=== PATIENT | female | born 1995 | race Caucasian/White ===

== ENCOUNTER 2022-10-08 21:35 | Emergency (ER) | payer OTHER ==
[2022-10-08 21:41] VITALS: BP 98/63; PULSE 120; RESP 18; TEMP 98.9; BMI 29.1
[2022-10-08] MEDS ORDERED: LACTATED RINGERS SOLUTION 1000 ML INFUS.BAG IV ONE (22:01)
[2022-10-08] MEDS ORDERED: ONDANSETRON 4 MG/2 ML VIAL IVPUSH ONE (22:04)
[2022-10-08] MEDS ORDERED: ONDANSETRON 4 MG/2 ML VIAL ONE (23:04)
[2022-10-08 23:33] LABS: HEMOGLOBIN 12.7 GM/dL (10.7-15.3); MCH 29.8 pg (25.7-33.7); MCHC 34.2 g/dl (32.0-36.0); MEAN CELL VOLUME 87.1 fl (80-96); MEAN PLT VOLUME 8.7 fl (7.5-11.1); PLATELET COUNT 317 10^3/uL (134-434); RBC 4.25 M/mm3 (3.60-5.2); WHITE BLOOD COUNT 20.9 K/mm3 (4.0-10.0)
[2022-10-08 23:41] LABS: URINE APPEARANCE CLOUDY; URINE BILIRUBIN NEGATIVE (NEGATIVE); URINE COLOR YELLOW; URINE GLUCOSE (UA) NEGATIVE (NEGATIVE); URINE KETONE 3+ (NEGATIVE); URINE LEUK ESTERASE NEGATIVE (NEGATIVE); URINE NITRITE NEGATIVE (NEGATIVE); URINE PROTEIN TRACE (NEGATIVE)
[2022-10-08 23:50] LABS: POTASSIUM 3.9 mmol/L (3.5-5.1)
[2022-10-08 23:50] LABS: THROAT:GRP A STREP DETECTED (NOTDETECTED)
[2022-10-08 23:51] LABS: ALBUMIN 3.4 g/dl (3.4-5.0); CALCIUM 9.2 mg/dL (8.5-10.1)
[2022-10-08 23:53] LABS: BLOOD UREA NITROGEN 6.4 mg/dL (7-18)
[2022-10-08 23:56] LABS: CREATININE 0.5 mg/dL (0.55-1.3)
[2022-10-08 23:57] LABS: BILIRUBIN,TOTAL 0.4 mg/dL (0.2-1); TOT PROT 7.2 g/dl (6.4-8.2)
[2022-10-09 00:05] LABS: ANISOCYTOSIS 1+; MACROCYTOSIS 0; ROULEAU 2+
== END 2022-10-09 01:41 | disposition home or self-care (01) ==
LOC: JER 21:35
PROC: 3E033GC Introduction of Other Therapeutic Substance into Peripheral Vein, Percutaneous Approach (ICD-10-PCS; principal; 2022-10-08)
DX: O21.9 Vomiting of pregnancy, unspecified (principal); O99.820 Streptococcus B carrier state complicating pregnancy; Z3A.12 12 weeks gestation of pregnancy; Z20.822 Contact with and (suspected) exposure to COVID-19
CPT/HCPCS: 0241U-QW; 36415; 76817-TC; 80053; 81003; 84703; 85025; 87086; 87651; 99284-25

== ENCOUNTER 2023-03-05 04:40 | Inpatient (IN) | payer OTHER ==
[2023-03-05] MEDS ORDERED: LACTATED RINGERS SOLUTION 500 ML IV ONE ×2 (05:15→06:15)
[2023-03-05] MEDS ORDERED: NIFEdipine 10 MG CAPSULE (FP) PO ONE (06:15)
[2023-03-05] MEDS ORDERED: NIFEdipine 10 MG CAPSULE (FP) ONE (06:19)
[2023-03-05] MEDS ORDERED: BETAMET ACET/BETAMET NA PH 30 MG/5 ML VIAL IM ONE (06:25)
[2023-03-05] MEDS ORDERED: BETAMET ACET/BETAMET NA PH 30 MG/5 ML VIAL ONE (06:33)
[2023-03-05] MEDS ORDERED: ONDANSETRON 4 MG/2 ML VIAL IVPUSH ONE (08:00)
[2023-03-05] MEDS ORDERED: ONDANSETRON 4 MG/2 ML VIAL ONE ×2 (08:03→15:07)
[2023-03-05] MEDS: MAGNESIUM IVPB SCH (09:45)
[2023-03-05] MEDS ORDERED: MAGNESIUM 4GM/H20 - 4 GM/100 ML IVPB IVPB ONE ×2 (09:45→10:09)
[2023-03-05] MEDS ORDERED: MAGNESIUM SULFATE 20GM/500ML - 20 GM/500 ML INFUS.BAG ONE (10:09)
[2023-03-05] MEDS: MAGNESIUM SULFATE 20GM/500ML - 20 GM/500 ML INFUS.BAG IVPB SCH (10:30)
[2023-03-05] MEDS ORDERED: FAMOTIDINE 20 MG/50 ML IVPB 20 MG/50 ML MG IVPB ONE ×2 (11:15→11:32)
[2023-03-05 11:56] LABS: HEMATOCRIT 33.7 % (32.4-45.2); HEMOGLOBIN 11.5 GM/dL (10.7-15.3); MCH 30.4 pg (25.7-33.7); MCHC 34.1 g/dl (32.0-36.0); MEAN CELL VOLUME 89.2 fl (80-96); PLATELET COUNT 246 10^3/uL (134-434); RBC 3.78 M/mm3 (3.60-5.2); WHITE BLOOD COUNT 15.6 K/mm3 (4.0-10.0)
[2023-03-05 11:59] LABS: INR 0.87 (0.83-1.09); PROTHROMBIN TIME (PATIENT) 10.1 SEC (9.7-13.0)
[2023-03-05 12:02] LABS: ACTIVATED PTT 26.7 SECONDS (25.2-36.5)
[2023-03-05 12:04] LABS: ALBUMIN 2.6 g/dl (3.4-5.0)
[2023-03-05 12:07] LABS: BILIRUBIN,DIRECT 0.1 mg/dL (0.0-0.2)
[2023-03-05 12:09] LABS: BILIRUBIN,TOTAL 0.3 mg/dL (0.2-1); TOT PROT 6.4 g/dl (6.4-8.2)
[2023-03-05] MEDS ORDERED: CITRIC ACID/SODIUM CITRATE 30 ML UNIT-DOSE CUP PO ONE (12:30)
[2023-03-05 12:54] LABS: ANISOCYTOSIS 1+; MACROCYTOSIS 0
[2023-03-05 13:15] LABS: POTASSIUM 4.7 mmol/L (3.5-5.1)
[2023-03-05 13:17] LABS: CALCIUM 8.8 mg/dL (8.5-10.1)
[2023-03-05 13:18] LABS: BLOOD UREA NITROGEN 10.3 mg/dL (7-18)
[2023-03-05 13:28] LABS: CREATININE 0.6 mg/dL (0.55-1.3)
[2023-03-05] MEDS ORDERED: PANTOPRAZOLE SODIUM 40 MG VIAL IVPUSH ONE (14:15)
[2023-03-05] MEDS ORDERED: SODIUM CHLORIDE 0.9% P/F 10 ML VIAL IJ ONE (14:15)
[2023-03-05] MEDS ORDERED: PHENYLEPHRINE HCL 10 MG/1 ML SINGLE DOSE VIAL ONE (14:15)
[2023-03-05] MEDS ORDERED: ePHEDrine SULFATE 50 MG/1 ML AMPULE ONE (14:16)
[2023-03-05] MEDS ORDERED: ACETAMINOPHEN 1000 MG/100 ML BAG IVPB ONE (14:16)
[2023-03-05] MEDS ORDERED: SUCCINYLCHOLINE CHLORIDE 200 MG/10 ML SYRINGE ONE (14:16)
[2023-03-05] MEDS ORDERED: ACETAMINOPHEN INJECTION 100 ML IVPB ONE (14:34)
[2023-03-05] MEDS ORDERED: morphine SULFATE/PF 1 MG/2 ML (2cc Syringe - QUVA) ONE (15:07)
[2023-03-05] MEDS ORDERED: FENTANYL CITRATE/PF 50 MCG/ML VIAL ONE (15:08)
[2023-03-05 15:09] LABS: URINE APPEARANCE Clear; URINE BILIRUBIN Negative (NEGATIVE); URINE COLOR Yellow; URINE GLUCOSE (UA) Negative (NEGATIVE); URINE KETONE 2+ (NEGATIVE); URINE LEUK ESTERASE Negative (NEGATIVE); URINE NITRITE Negative (NEGATIVE); URINE PROTEIN 2+ (NEGATIVE); URINE UROBILINOGEN 0.2 mg/dL (0.2-1.0)
[2023-03-05] MEDS ORDERED: OXYTOCIN 30 UNITS in 0.9% NS 30 UNIT/500 ML INFUS.BAG IVPB ONE (15:14)
[2023-03-05] MEDS ORDERED: IBUPROFEN 600 MG TABLET (FP) PO PRN (15:38)
[2023-03-05] MEDS ORDERED: ACETAMINOPHEN 1000 MG/100 ML BAG IVPB PRN (15:38)
[2023-03-05] MEDS ORDERED: SENNOSIDES/DOCUSATE COMBO (SENNA PLUS) TABLET (UD) PO PRN (15:38)
[2023-03-05] MEDS ORDERED: ACETAMINOPHEN 325 MG TABLET (FP) PO PRN (15:38)
[2023-03-05] MEDS ORDERED: ONDANSETRON 4 MG/2 ML VIAL IVPB PRN (15:38)
[2023-03-05] MEDS ORDERED: IBUPROFEN 800 MG/8 ML IJ IVPB PRN (15:38)
[2023-03-05] MEDS ORDERED: oxyCODONE HCL 5 MG TABLET PO PRN (15:38)
[2023-03-05 15:40] LABS: COCAINE, UR NEGATIVE (NEGATIVE); METHADONE, UR NEGATIVE (NEGATIVE); OPIATES, URI NEGATIVE (NEGATIVE); PHENCYCLIDINE,URINE NEGATIVE (NEGATIVE); URINE AMPHETAMINES NEGATIVE (NEGATIVE); URINE BARBITURATES NEGATIVE (NEGATIVE); URINE BENZODIAZEPINES NEGATIVE (NEGATIVE)
[2023-03-05] MEDS ORDERED: MIDAZOLAM HCL 2 MG/2 ML SINGLE DOSE VIAL ONE ×2 (15:54→15:55)
[2023-03-05 16:07] LABS: EPI CELLS 36.9 /uL (0-25.1); HYALINE CASTS 5.69 /uL (0-3.1); URINE BACTERIA 57.1 /uL (0-1359); URINE RBC 22.3 /uL (0-23.9); URINE WBC 19.2 /uL (0-25.8)
[2023-03-05 16:55] LABS: CORD HCO3 15.3 mmHg (20-29); CORD PCO2 83.7 mmHg (30-78)
[2023-03-05 16:58] LABS: CORD HCO3 13.9 mmHg (20-29); CORD PCO2 94.8 mmHg (30-78)
[2023-03-05 17:18] LABS: CORD pH 6.785 (7.14-7.44)
[2023-03-05] MEDS: OXYTOCIN 20 UNITS in 0.9% NS 20 UNIT/1,000 ML INFUS.BAG IV SCH (18:00)
[2023-03-05] MEDS ORDERED: OXYTOCIN 20 UNITS in 0.9% NS 20 UNIT/1,000 ML INFUS.BAG IV ONE (18:14)
[2023-03-05 22:54] LABS: HEMATOCRIT 24.7 % (32.4-45.2); HEMOGLOBIN 8.4 GM/dL (10.7-15.3); MCH 30.2 pg (25.7-33.7); MCHC 34.1 g/dl (32.0-36.0); MEAN CELL VOLUME 88.7 fl (80-96); MEAN PLT VOLUME 10.4 fl (7.5-11.1); PLATELET COUNT 203 10^3/uL (134-434); RBC 2.79 M/mm3 (3.60-5.2); RDW 14.2 % (11.6-15.6)
[2023-03-06] MEDS: OXYTOCIN 20 UNITS in 0.9% NS 20 UNIT/1,000 ML INFUS.BAG IV SCH (03:38)
[2023-03-06 07:08] LABS: HEMATOCRIT 20.1 % (32.4-45.2); MCH 30.5 pg (25.7-33.7); MCHC 33.9 g/dl (32.0-36.0); MEAN CELL VOLUME 89.9 fl (80-96); MEAN PLT VOLUME 10.2 fl (7.5-11.1); PLATELET COUNT 161 10^3/uL (134-434); RBC 2.23 M/mm3 (3.60-5.2); RDW 13.9 % (11.6-15.6); WHITE BLOOD COUNT 20.4 K/mm3 (4.0-10.0)
[2023-03-06 07:20] LABS: HEMOGLOBIN 6.8 GM/dL (10.7-15.3)
[2023-03-06] MEDS ORDERED: oxyCODONE HCL 5 MG TABLET PO PRN (08:33)
[2023-03-06] MEDS ORDERED: LACTATED RINGERS SOLUTION 1,000 ML/1,000 ML INFUS.BAG IV SCH (08:45)
[2023-03-06 09:03] LABS: INR 0.99 (0.83-1.09); PROTHROMBIN TIME (PATIENT) 11.5 SEC (9.7-13.0)
[2023-03-06 09:05] LABS: ACTIVATED PTT 23.9 SECONDS (25.2-36.5)
[2023-03-06 09:09] LABS: ANISOCYTOSIS 0; HELMET CELLS 0; HOWELL-JOLLY BODIES 0; MACROCYTOSIS 0; OVALOCYTE 0; ROULEAU 0; SICKELED CELLS 0; TARGET CELLS 0; TEAR DROP CELLS 0; TOXIC GRANULATION 0
[2023-03-06] MEDS ORDERED: ACETAMINOPHEN 1000 MG/100 ML BAG IVPB PRN (09:23)
[2023-03-06 09:27] LABS: POTASSIUM 4.5 mmol/L (3.5-5.1)
[2023-03-06 09:30] LABS: BLOOD UREA NITROGEN 10.8 mg/dL (7-18); MAGNESIUM 2.6 mg/dL (1.8-2.4)
[2023-03-06 09:33] LABS: CREATININE 0.5 mg/dL (0.55-1.3); PHOSPHOROUS 3.5 mg/dL (2.5-4.9)
[2023-03-06 09:34] LABS: BILIRUBIN,TOTAL 0.3 mg/dL (0.2-1); TOT PROT 4.8 g/dl (6.4-8.2)
[2023-03-06 09:49] LABS: CALCIUM 7.2 mg/dL (8.5-10.1)
[2023-03-06] MEDS: oxyCODONE HCL 5 MG TABLET PO PRN ×2 (10:16→20:16)
[2023-03-06] MEDS ORDERED: MIDAZOLAM HCL 2 MG/2 ML SINGLE DOSE VIAL ONE (10:44)
[2023-03-06] MEDS ORDERED: FENTANYL CITRATE/PF 50 MCG/ML VIAL ONE ×2 (10:44→12:01)
[2023-03-06] MEDS ORDERED: SODIUM CHLORIDE 500 ML IV SCH (11:20)
[2023-03-06] MEDS ORDERED: MIDAZOLAM HCL 2 MG/2 ML SINGLE DOSE VIAL IVPUSH ONE ×3 (11:23→12:20)
[2023-03-06] MEDS ORDERED: FENTANYL CITRATE/PF 50 MCG/ML VIAL IVPUSH ONE ×3 (11:23→12:20)
[2023-03-06 13:42] LABS: BASO % 0.2 % (0-2.0); HEMATOCRIT 24.5 % (32.4-45.2); HEMOGLOBIN 8.4 GM/dL (10.7-15.3); MCHC 34.3 g/dl (32.0-36.0); MEAN CELL VOLUME 87.6 fl (80-96); MEAN PLT VOLUME 9.2 fl (7.5-11.1); MONO % 7.7 % (3.8-10.2); NEUT % 81.1 % (42.8-82.8); PLATELET COUNT 163 10^3/uL (134-434); RBC 2.79 M/mm3 (3.60-5.2); RDW 14.1 % (11.6-15.6); WHITE BLOOD COUNT 18.6 K/mm3 (4.0-10.0)
[2023-03-06 15:27] LABS: BASO % 0.2 % (0-2.0); HEMATOCRIT 25.5 % (32.4-45.2); HEMOGLOBIN 8.6 GM/dL (10.7-15.3); LYMPH % 11.9 % (8-40); MCHC 33.6 g/dl (32.0-36.0); MEAN CELL VOLUME 89.2 fl (80-96); MEAN PLT VOLUME 9.8 fl (7.5-11.1); MONO % 7.1 % (3.8-10.2); NEUT % 80.8 % (42.8-82.8); PLATELET COUNT 167 10^3/uL (134-434); RBC 2.86 M/mm3 (3.60-5.2); RDW 14.4 % (11.6-15.6); WHITE BLOOD COUNT 18.8 K/mm3 (4.0-10.0)
[2023-03-06] MEDS ORDERED: BISACODYL 10 MG SUPP.RECT RC PRN (15:38)
[2023-03-06] MEDS ORDERED: ONDANSETRON 4 MG/2 ML VIAL IVPUSH PRN (18:17)
[2023-03-06] MEDS ORDERED: ONDANSETRON 4 MG/2 ML VIAL IVPUSH ONE (18:17)
[2023-03-06] MEDS: MAGNESIUM IVPB SCH (19:50)
[2023-03-06 21:09] LABS: HEMATOCRIT 25.5 % (32.4-45.2); HEMOGLOBIN 8.9 GM/dL (10.7-15.3); MCH 30.2 pg (25.7-33.7); MEAN CELL VOLUME 86.3 fl (80-96); MEAN PLT VOLUME 9.5 fl (7.5-11.1); PLATELET COUNT 161 10^3/uL (134-434); RBC 2.96 M/mm3 (3.60-5.2); RDW 14.6 % (11.6-15.6); WHITE BLOOD COUNT 20.8 K/mm3 (4.0-10.0)
[2023-03-06 22:09] LABS: ANISOCYTOSIS 0; MACROCYTOSIS 1+
[2023-03-06] MEDS ORDERED: HYDROmorphone HCl 2 MG/ML VIAL IVPUSH STA (22:09)
[2023-03-06 23:51] LABS: HEMATOCRIT 24.6 % (32.4-45.2); HEMOGLOBIN 8.6 GM/dL (10.7-15.3); MCH 30.3 pg (25.7-33.7); MCHC 35.2 g/dl (32.0-36.0); MEAN CELL VOLUME 86.2 fl (80-96); MEAN PLT VOLUME 9.4 fl (7.5-11.1); PLATELET COUNT 160 10^3/uL (134-434); RBC 2.85 M/mm3 (3.60-5.2); RDW 14.9 % (11.6-15.6); WHITE BLOOD COUNT 20.2 K/mm3 (4.0-10.0)
[2023-03-07] MEDS: oxyCODONE HCL 5 MG TABLET PO PRN ×3 (02:32→20:11)
[2023-03-07] MEDS ORDERED: HYDROmorphone HCl 2 MG/ML VIAL IVPUSH STA (05:38)
[2023-03-07 06:08] LABS: ANISOCYTOSIS 3+; MACROCYTOSIS 0
[2023-03-07 07:09] LABS: HEMOGLOBIN 8.7 GM/dL (10.7-15.3); MCH 30.7 pg (25.7-33.7); MCHC 34.7 g/dl (32.0-36.0); MEAN CELL VOLUME 88.5 fl (80-96); MEAN PLT VOLUME 9.8 fl (7.5-11.1); PLATELET COUNT 167 10^3/uL (134-434); RBC 2.82 M/mm3 (3.60-5.2); RDW 14.9 % (11.6-15.6); WHITE BLOOD COUNT 19.5 K/mm3 (4.0-10.0)
[2023-03-07 07:37] LABS: POTASSIUM 4.1 mmol/L (3.5-5.1)
[2023-03-07 07:39] LABS: BLOOD UREA NITROGEN 9.4 mg/dL (7-18); CALCIUM 7.4 mg/dL (8.5-10.1)
[2023-03-07 07:42] LABS: PHOSPHOROUS 2.7 mg/dL (2.5-4.9)
[2023-03-07 07:43] LABS: CREATININE 0.5 mg/dL (0.55-1.3)
[2023-03-07] MEDS: POLYETHYLENE GLYCOL (HEALTHYLAX) 3350 17 GM PACKET PO SCH (12:06)
[2023-03-07 14:30] LABS: HEMATOCRIT 27.3 % (32.4-45.2); HEMOGLOBIN 9.2 GM/dL (10.7-15.3); MCH 29.9 pg (25.7-33.7); MCHC 33.7 g/dl (32.0-36.0); MEAN CELL VOLUME 88.9 fl (80-96); MEAN PLT VOLUME 9.7 fl (7.5-11.1); PLATELET COUNT 203 10^3/uL (134-434); RBC 3.07 M/mm3 (3.60-5.2); RDW 14.7 % (11.6-15.6); WHITE BLOOD COUNT 24.5 K/mm3 (4.0-10.0)
[2023-03-07] MEDS: ACETAMINOPHEN 1000 MG/100 ML BAG IVPB PRN (17:43)
[2023-03-07] MEDS: SIMETHICONE 80 MG TAB.CHEW (FP) PO PRN (17:43)
[2023-03-07] MEDS: SENNOSIDES 8.8 MG/5 ML SYRUP PO SCH (21:21)
[2023-03-07 22:39] LABS: HEMATOCRIT 23.5 % (32.4-45.2); HEMOGLOBIN 8.1 GM/dL (10.7-15.3); MCHC 34.4 g/dl (32.0-36.0); MEAN CELL VOLUME 87.2 fl (80-96); MEAN PLT VOLUME 9.4 fl (7.5-11.1); PLATELET COUNT 159 10^3/uL (134-434); RDW 14.4 % (11.6-15.6); WHITE BLOOD COUNT 19.7 K/mm3 (4.0-10.0)
[2023-03-08] MEDS: ACETAMINOPHEN 1000 MG/100 ML BAG IVPB PRN ×2 (01:02→07:45)
[2023-03-08] MEDS: oxyCODONE HCL 5 MG TABLET PO PRN ×2 (04:39→17:17)
[2023-03-08 07:16] LABS: HEMATOCRIT 23.9 % (32.4-45.2); MCH 30.1 pg (25.7-33.7); MCHC 33.5 g/dl (32.0-36.0); MEAN PLT VOLUME 9.3 fl (7.5-11.1); PLATELET COUNT 167 10^3/uL (134-434); RBC 2.66 M/mm3 (3.60-5.2); RDW 14.9 % (11.6-15.6)
[2023-03-08 07:51] LABS: CALCIUM 7.5 mg/dL (8.5-10.1)
[2023-03-08 07:55] LABS: CREATININE 0.5 mg/dL (0.55-1.3)
[2023-03-08 07:56] LABS: BILIRUBIN,TOTAL 0.4 mg/dL (0.2-1); TOT PROT 4.8 g/dl (6.4-8.2)
[2023-03-08 08:54] LABS: ANISOCYTOSIS 1+; MACROCYTOSIS 0; TARGET CELLS 2+
[2023-03-08] MEDS: POLYETHYLENE GLYCOL (HEALTHYLAX) 3350 17 GM PACKET PO SCH (09:31)
[2023-03-08] MEDS ORDERED: morphine CARPU-JECT 4 MG/1 ML DISP.SYRIN IVPUSH PRN (10:28)
[2023-03-08 11:34] LABS: INR 1.03 (0.83-1.09)
[2023-03-08] MEDS: OXYTOCIN 20 UNITS in 0.9% NS 20 UNIT/1,000 ML INFUS.BAG IV SCH (20:04)
[2023-03-08] MEDS: MAGNESIUM SULFATE 20GM/500ML - 20 GM/500 ML INFUS.BAG IVPB SCH (20:04)
[2023-03-08] MEDS: SENNOSIDES 8.8 MG/5 ML SYRUP PO SCH (21:15)
[2023-03-09] MEDS: oxyCODONE HCL 5 MG TABLET PO PRN (00:54)
[2023-03-09] MEDS ORDERED: KETOROLAC TROMETHAMINE 15 MG/ML VIAL IVPUSH STA (06:13)
[2023-03-09 07:46] LABS: BASO % 0.2 % (0-2.0); EOS % 0.5 % (0-4.5); HEMATOCRIT 23.3 % (32.4-45.2); HEMOGLOBIN 7.9 GM/dL (10.7-15.3); LYMPH % 6.2 % (8-40); MCH 30.3 pg (25.7-33.7); MCHC 33.8 g/dl (32.0-36.0); MEAN CELL VOLUME 89.8 fl (80-96); MEAN PLT VOLUME 8.9 fl (7.5-11.1); MONO % 7.4 % (3.8-10.2); NEUT % 85.7 % (42.8-82.8); PLATELET COUNT 232 10^3/uL (134-434); RDW 14.8 % (11.6-15.6); WHITE BLOOD COUNT 19.4 K/mm3 (4.0-10.0)
[2023-03-09 07:54] LABS: CALCIUM 7.3 mg/dL (8.5-10.1)
[2023-03-09 07:55] LABS: ALBUMIN 1.9 g/dl (3.4-5.0); BLOOD UREA NITROGEN 9.2 mg/dL (7-18); MAGNESIUM 1.6 mg/dL (1.8-2.4)
[2023-03-09 07:58] LABS: CREATININE 0.4 mg/dL (0.55-1.3); INR 1.09 (0.83-1.09); PHOSPHOROUS 2.8 mg/dL (2.5-4.9); PROTHROMBIN TIME (PATIENT) 12.6 SEC (9.7-13.0)
[2023-03-09 08:00] LABS: ACTIVATED PTT 24.2 SECONDS (25.2-36.5); BILIRUBIN,TOTAL 0.5 mg/dL (0.2-1); TOT PROT 4.9 g/dl (6.4-8.2)
[2023-03-09] MEDS ORDERED: MAGNESIUM SULF 50% (8.12 MEQ/2 ML-1 GM VIAL) IVPB ONE ×2 (08:30→12:45)
[2023-03-09] MEDS: POLYETHYLENE GLYCOL (HEALTHYLAX) 3350 17 GM PACKET PO SCH (09:29)
[2023-03-09] MEDS: SIMETHICONE 80 MG TAB.CHEW (FP) PO PRN (09:45)
[2023-03-09] MEDS: PIPERACILLIN/TAZOB 3.375 GM 3.375 GM in DEXTROSE 5%-WATER - 50 ML IVPB SCH ×3 (11:37→21:18)
[2023-03-09 11:47] LABS: EPI CELLS 25 /uL (0-25.1); HYALINE CASTS 1 /uL (0-3.1); URINE APPEARANCE CLEAR; URINE BACTERIA 1517 /uL (0-1359); URINE BILIRUBIN NEGATIVE (NEGATIVE); URINE COLOR YELLOW; URINE GLUCOSE (UA) NEGATIVE (NEGATIVE); URINE KETONE TRACE (NEGATIVE); URINE LEUK ESTERASE 1+ (NEGATIVE); URINE NITRITE NEGATIVE (NEGATIVE); URINE PROTEIN TRACE (NEGATIVE); URINE RBC 12 /uL (0-23.9); URINE WBC 147 /uL (0-25.8)
[2023-03-09] MEDS: MAGNESIUM SULFATE 20GM/500ML - 20 GM/500 ML INFUS.BAG IVPB SCH ×3 (11:50→23:37)
[2023-03-09] MEDS ORDERED: MAGNESIUM SULFATE 20GM/500ML - 20 GM/500 ML INFUS.BAG IV SCH ×2 (14:00)
[2023-03-09 14:05] VITALS: BMI 38.6
[2023-03-09 14:58] LABS: URIC ACID 5.7 mg/dL (2.6-7.2)
[2023-03-09] MEDS ORDERED: KETOROLAC TROMETHAMINE 30 MG/1 ML VIAL IVPB ONE (15:45)
[2023-03-09 18:31] LABS: MAGNESIUM 9.2 mg/dL (1.8-2.4)
[2023-03-09] MEDS: SENNOSIDES 8.8 MG/5 ML SYRUP PO SCH (21:18)
[2023-03-10] MEDS: PIPERACILLIN/TAZOB 3.375 GM 3.375 GM in DEXTROSE 5%-WATER - 50 ML IVPB SCH ×4 (02:02→21:26)
[2023-03-10] MEDS ORDERED: HYDROmorphone HCl 2 MG/ML VIAL IVPUSH STA (02:07)
[2023-03-10 06:45] LABS: BASO % 0.2 % (0-2.0); EOS % 0.9 % (0-4.5); HEMATOCRIT 21.2 % (32.4-45.2); HEMOGLOBIN 7.1 GM/dL (10.7-15.3); LYMPH % 8.1 % (8-40); MCH 30.3 pg (25.7-33.7); MCHC 33.7 g/dl (32.0-36.0); MEAN CELL VOLUME 90.1 fl (80-96); MEAN PLT VOLUME 8.3 fl (7.5-11.1); MONO % 9.6 % (3.8-10.2); NEUT % 81.2 % (42.8-82.8); PLATELET COUNT 259 10^3/uL (134-434); RBC 2.35 M/mm3 (3.60-5.2); RDW 14.5 % (11.6-15.6); WHITE BLOOD COUNT 15.7 K/mm3 (4.0-10.0)
[2023-03-10 07:08] LABS: POTASSIUM 3.9 mmol/L (3.5-5.1)
[2023-03-10 07:11] LABS: CALCIUM 7.3 mg/dL (8.5-10.1)
[2023-03-10 07:12] LABS: ALBUMIN 1.8 g/dl (3.4-5.0); BLOOD UREA NITROGEN 10.9 mg/dL (7-18); MAGNESIUM 3.3 mg/dL (1.8-2.4)
[2023-03-10 07:15] LABS: CREATININE 0.6 mg/dL (0.55-1.3)
[2023-03-10 07:16] LABS: BILIRUBIN,TOTAL 0.4 mg/dL (0.2-1)
[2023-03-10 07:17] LABS: TOT PROT 4.8 g/dl (6.4-8.2)
[2023-03-10] MEDS: POLYETHYLENE GLYCOL (HEALTHYLAX) 3350 17 GM PACKET PO SCH ×3 (09:05→21:26)
[2023-03-10] MEDS ORDERED: HYDROmorphone HCl 2 MG/ML VIAL IVPUSH ONE (09:10)
[2023-03-10] MEDS ORDERED: oxyCODONE HCL 5 MG TABLET PO PRN ×3 (09:30→09:41)
[2023-03-10] MEDS ORDERED: HYDROmorphone HCl 2 MG/ML VIAL IVPUSH PRN ×2 (09:32→09:42)
[2023-03-10] MEDS ORDERED: BISACODYL 5 MG TABLET.DR (FP) PO PRN (09:47)
[2023-03-10] MEDS ORDERED: morphine SULFATE 4 MG/ML VIAL IVPUSH PRN (09:56)
[2023-03-10] MEDS ORDERED: NIFEdipine E.R. 30 MG TABLET PO SCH (10:00)
[2023-03-10] MEDS ORDERED: GLYCERIN 1 RECTAL SUPPOSITORY, ADULT RC PRN (10:07)
[2023-03-10] MEDS: SENNOSIDES 8.6MG TABLET (FP) PO SCH ×2 (10:11→21:26)
[2023-03-10] MEDS: morphine SULFATE 4 MG/ML VIAL IVPUSH PRN ×2 (13:32→21:26)
[2023-03-10 15:30] LABS: HEMATOCRIT 24.8 % (32.4-45.2); HEMOGLOBIN 8.3 GM/dL (10.7-15.3); MCHC 33.3 g/dl (32.0-36.0); MEAN CELL VOLUME 89.9 fl (80-96); MEAN PLT VOLUME 8.6 fl (7.5-11.1); PLATELET COUNT 324 10^3/uL (134-434); RBC 2.76 M/mm3 (3.60-5.2); RDW 14.4 % (11.6-15.6); WHITE BLOOD COUNT 19.8 K/mm3 (4.0-10.0)
[2023-03-10] MEDS: MAGNESIUM SULFATE 20GM/500ML - 20 GM/500 ML INFUS.BAG IVPB SCH (20:27)
[2023-03-10 22:47] LABS: HEMATOCRIT 22.2 % (32.4-45.2); HEMOGLOBIN 7.4 GM/dL (10.7-15.3); MCH 29.8 pg (25.7-33.7); MCHC 33.4 g/dl (32.0-36.0); MEAN CELL VOLUME 89.2 fl (80-96); RBC 2.49 M/mm3 (3.60-5.2); RDW 14.4 % (11.6-15.6); WHITE BLOOD COUNT 19.5 K/mm3 (4.0-10.0)
[2023-03-10 23:15] LABS: MAGNESIUM 15.2 mg/dL (1.8-2.4)
[2023-03-10 23:45] LABS: HEMATOCRIT 22.3 % (32.4-45.2); HEMOGLOBIN 7.5 GM/dL (10.7-15.3); MCH 29.8 pg (25.7-33.7); MCHC 33.4 g/dl (32.0-36.0); MEAN CELL VOLUME 89.3 fl (80-96); RDW 14.6 % (11.6-15.6); WHITE BLOOD COUNT 19.2 K/mm3 (4.0-10.0)
[2023-03-11] MEDS ORDERED: NICARDIPINE 25 MG in DEXTROSE 5%-WATER - 240 ML IVPB SCH
[2023-03-11] MEDS: MAGNESIUM SULFATE 20GM/500ML - 20 GM/500 ML INFUS.BAG IVPB SCH (00:01)
[2023-03-11] MEDS: morphine SULFATE 4 MG/ML VIAL IVPUSH PRN ×3 (01:53→21:51)
[2023-03-11 02:04] LABS: CHLORIDE 102 mmol/L (98-107); POTASSIUM 3.7 mmol/L (3.5-5.1); SODIUM 134 mmol/L (136-145)
[2023-03-11 02:07] LABS: ALBUMIN 1.8 g/dl (3.4-5.0); ANION GAP 6 MMOL/L (8-16); BLOOD UREA NITROGEN 7.7 mg/dL (7-18); CO2 27 mmol/L (21-32); GLUCOSE,RANDOM 212 mg/dL (74-106)
[2023-03-11 02:08] LABS: MAGNESIUM 2.9 mg/dL (1.8-2.4)
[2023-03-11 02:10] LABS: CREATININE 0.5 mg/dL (0.55-1.3); PHOSPHOROUS 3.8 mg/dL (2.5-4.9); SGOT/AST 34 U/L (15-37); SGPT/ALT 187 U/L (13-61)
[2023-03-11 02:12] LABS: BILIRUBIN,TOTAL 0.4 mg/dL (0.2-1)
[2023-03-11 02:13] LABS: ALK PHOS 132 U/L (45-117)
[2023-03-11 02:27] LABS: CALCIUM 6.8 mg/dL (8.5-10.1)
[2023-03-11] MEDS: PIPERACILLIN/TAZOB 3.375 GM 3.375 GM in DEXTROSE 5%-WATER - 50 ML IVPB SCH ×4 (03:30→22:00)
[2023-03-11] MEDS ORDERED: FUROSEMIDE 40 MG/4 ML INJECTABLE VIAL IVPUSH ONE (06:20)
[2023-03-11 06:47] LABS: BASO % 0.1 % (0-2.0); EOS % 2.2 % (0-4.5); HEMATOCRIT 25.9 % (32.4-45.2); HEMOGLOBIN 8.6 GM/dL (10.7-15.3); LYMPH % 9.9 % (8-40); MCHC 33.4 g/dl (32.0-36.0); MEAN CELL VOLUME 89.8 fl (80-96); MEAN PLT VOLUME 8.6 fl (7.5-11.1); MONO % 9.9 % (3.8-10.2); NEUT % 77.9 % (42.8-82.8); PLATELET COUNT 328 10^3/uL (134-434); RBC 2.88 M/mm3 (3.60-5.2); RDW 14.1 % (11.6-15.6); WHITE BLOOD COUNT 19.1 K/mm3 (4.0-10.0)
[2023-03-11] MEDS: POLYETHYLENE GLYCOL (HEALTHYLAX) 3350 17 GM PACKET PO SCH ×2 (10:58→22:14)
[2023-03-11] MEDS: SENNOSIDES 8.6MG TABLET (FP) PO SCH ×2 (10:58→22:15)
[2023-03-11] MEDS ORDERED: NIFEdipine 10 MG CAPSULE (FP) PO SCH (14:00)
[2023-03-11] MEDS: oxyCODONE HCL 5 MG TABLET PO PRN (18:07)
[2023-03-11] MEDS: LABETALOL HCL 200 MG TABLET (FP) PO SCH (22:17)
[2023-03-12] MEDS: morphine SULFATE 4 MG/ML VIAL IVPUSH PRN (01:55)
[2023-03-12] MEDS: PIPERACILLIN/TAZOB 3.375 GM 3.375 GM in DEXTROSE 5%-WATER - 50 ML IVPB SCH ×4 (02:40→21:40)
[2023-03-12] MEDS: oxyCODONE HCL 5 MG TABLET PO PRN ×3 (07:17→19:17)
[2023-03-12] MEDS: LABETALOL HCL 200 MG TABLET (FP) PO SCH ×3 (09:32→22:00)
[2023-03-12] MEDS: POLYETHYLENE GLYCOL (HEALTHYLAX) 3350 17 GM PACKET PO SCH ×2 (12:54→22:01)
[2023-03-12] MEDS: SENNOSIDES 8.6MG TABLET (FP) PO SCH ×2 (12:54→22:01)
[2023-03-12 15:48] LABS: HEMATOCRIT 28.6 % (32.4-45.2); HEMOGLOBIN 9.3 GM/dL (10.7-15.3); MCH 29.5 pg (25.7-33.7); MCHC 32.4 g/dl (32.0-36.0); MEAN CELL VOLUME 90.9 fl (80-96); RBC 3.15 M/mm3 (3.60-5.2); RDW 14.4 % (11.6-15.6)
[2023-03-12 15:50] LABS: WHITE BLOOD COUNT 26.9 K/mm3 (4.0-10.0)
[2023-03-12 15:51] LABS: MEAN PLT VOLUME 8.7 fl (7.5-11.1); PLATELET COUNT 451 10^3/uL (134-434)
[2023-03-12 16:06] LABS: POTASSIUM 4.3 mmol/L (3.5-5.1)
[2023-03-12 16:09] LABS: ALBUMIN 1.9 g/dl (3.4-5.0); BLOOD UREA NITROGEN 9.3 mg/dL (7-18)
[2023-03-12 16:13] LABS: CREATININE 0.4 mg/dL (0.55-1.3)
[2023-03-12 16:14] LABS: BILIRUBIN,TOTAL 0.6 mg/dL (0.2-1); TOT PROT 5.3 g/dl (6.4-8.2)
[2023-03-12 16:30] LABS: CALCIUM 8.1 mg/dL (8.5-10.1)
[2023-03-12 16:31] LABS: ANISOCYTOSIS 2+; MACROCYTOSIS 0; OVALOCYTE 1+
[2023-03-12] MEDS: SIMETHICONE 80 MG TAB.CHEW (FP) PO PRN (22:14)
[2023-03-12] MEDS: IBUPROFEN 600 MG TABLET (FP) PO PRN (22:14)
[2023-03-13] MEDS: PIPERACILLIN/TAZOB 3.375 GM 3.375 GM in DEXTROSE 5%-WATER - 50 ML IVPB SCH ×4 (03:38→21:16)
[2023-03-13] MEDS: oxyCODONE HCL 5 MG TABLET PO PRN ×3 (03:52→18:38)
[2023-03-13] MEDS: SIMETHICONE 80 MG TAB.CHEW (FP) PO PRN (03:52)
[2023-03-13] MEDS: IBUPROFEN 600 MG TABLET (FP) PO PRN (08:59)
[2023-03-13] MEDS: SENNOSIDES 8.6MG TABLET (FP) PO SCH ×2 (10:00→22:00)
[2023-03-13] MEDS: POLYETHYLENE GLYCOL (HEALTHYLAX) 3350 17 GM PACKET PO SCH ×2 (10:00→22:00)
[2023-03-13] MEDS: LABETALOL HCL 200 MG TABLET (FP) PO SCH ×2 (11:12→22:34)
[2023-03-13] MEDS ORDERED: oxyCODONE HCL 5 MG TABLET PO ONE (20:00)
[2023-03-14] MEDS: SIMETHICONE 80 MG TAB.CHEW (FP) PO PRN ×3 (00:03→17:08)
[2023-03-14] MEDS: oxyCODONE HCL 5 MG TABLET PO PRN ×4 (00:03→19:57)
[2023-03-14] MEDS: PIPERACILLIN/TAZOB 3.375 GM 3.375 GM in DEXTROSE 5%-WATER - 50 ML IVPB SCH ×4 (02:58→21:08)
[2023-03-14] MEDS: IBUPROFEN 600 MG TABLET (FP) PO PRN ×3 (02:58→17:07)
[2023-03-14 09:43] LABS: BASO % 0.7 % (0-2.0); EOS % 4.2 % (0-4.5); HEMATOCRIT 28.7 % (32.4-45.2); HEMOGLOBIN 9.5 GM/dL (10.7-15.3); LYMPH % 17.1 % (8-40); MCH 29.8 pg (25.7-33.7); MEAN CELL VOLUME 90.2 fl (80-96); MEAN PLT VOLUME 7.9 fl (7.5-11.1); MONO % 7.5 % (3.8-10.2); NEUT % 70.5 % (42.8-82.8); PLATELET COUNT 540 10^3/uL (134-434); RBC 3.18 M/mm3 (3.60-5.2); RDW 14.4 % (11.6-15.6); WHITE BLOOD COUNT 16.9 K/mm3 (4.0-10.0)
[2023-03-14 10:02] LABS: POTASSIUM 4.4 mmol/L (3.5-5.1)
[2023-03-14 10:10] LABS: ALBUMIN 2.2 g/dl (3.4-5.0); BLOOD UREA NITROGEN 7.7 mg/dL (7-18); CALCIUM 8.2 mg/dL (8.5-10.1)
[2023-03-14 10:12] LABS: BILIRUBIN,TOTAL 0.6 mg/dL (0.2-1)
[2023-03-14 10:13] LABS: BILIRUBIN,DIRECT 0.2 mg/dL (0.0-0.2); CREATININE 0.5 mg/dL (0.55-1.3)
[2023-03-14 10:14] LABS: TOT PROT 5.7 g/dl (6.4-8.2)
[2023-03-14] MEDS: LABETALOL HCL 200 MG TABLET (FP) PO SCH ×2 (10:52→21:08)
[2023-03-14] MEDS: SENNOSIDES 8.6MG TABLET (FP) PO SCH ×2 (10:58→21:09)
[2023-03-14] MEDS: POLYETHYLENE GLYCOL (HEALTHYLAX) 3350 17 GM PACKET PO SCH ×2 (10:59→21:08)
[2023-03-14] MEDS ORDERED: LIDOCAINE 5% TOPICAL PATCH TP SCH (12:45)
[2023-03-14] MEDS: LIDOCAINE 4% PATCH TP SCH (16:06)
[2023-03-14] MEDS: LIDOCAINE PATCH REMOVAL MC SCH (23:48)
[2023-03-15] MEDS: PIPERACILLIN/TAZOB 3.375 GM 3.375 GM in DEXTROSE 5%-WATER - 50 ML IVPB SCH ×4 (02:41→21:11)
[2023-03-15] MEDS: IBUPROFEN 600 MG TABLET (FP) PO PRN ×2 (04:41→14:56)
[2023-03-15] MEDS: SIMETHICONE 80 MG TAB.CHEW (FP) PO PRN (04:41)
[2023-03-15] MEDS: oxyCODONE HCL 5 MG TABLET PO PRN ×3 (07:57→21:10)
[2023-03-15] MEDS: LABETALOL HCL 200 MG TABLET (FP) PO SCH ×2 (09:04→21:11)
[2023-03-15 10:12] LABS: BASO % 0.2 % (0-2.0); EOS % 2.6 % (0-4.5); HEMATOCRIT 27.7 % (32.4-45.2); HEMOGLOBIN 9.1 GM/dL (10.7-15.3); LYMPH % 9.9 % (8-40); MCH 29.8 pg (25.7-33.7); MCHC 32.9 g/dl (32.0-36.0); MEAN CELL VOLUME 90.4 fl (80-96); MONO % 6.4 % (3.8-10.2); NEUT % 80.9 % (42.8-82.8); PLATELET COUNT 536 10^3/uL (134-434); RBC 3.06 M/mm3 (3.60-5.2); RDW 14.7 % (11.6-15.6); WHITE BLOOD COUNT 17.5 K/mm3 (4.0-10.0)
[2023-03-15 10:32] LABS: POTASSIUM 4.4 mmol/L (3.5-5.1)
[2023-03-15 10:40] LABS: ALBUMIN 2.2 g/dl (3.4-5.0); CALCIUM 8.8 mg/dL (8.5-10.1)
[2023-03-15 10:41] LABS: BLOOD UREA NITROGEN 8.6 mg/dL (7-18)
[2023-03-15 10:42] LABS: TOT PROT 5.9 g/dl (6.4-8.2)
[2023-03-15 10:44] LABS: CREATININE 0.6 mg/dL (0.55-1.3)
[2023-03-15 10:45] LABS: BILIRUBIN,TOTAL 0.6 mg/dL (0.2-1)
[2023-03-15] MEDS: LIDOCAINE 4% PATCH TP SCH (11:26)
[2023-03-15] MEDS: SENNOSIDES 8.6MG TABLET (FP) PO SCH ×2 (11:29→21:30)
[2023-03-15] MEDS: POLYETHYLENE GLYCOL (HEALTHYLAX) 3350 17 GM PACKET PO SCH ×2 (11:29→21:30)
[2023-03-15] MEDS: LIDOCAINE PATCH REMOVAL MC SCH (23:00)
[2023-03-16] MEDS: oxyCODONE HCL 5 MG TABLET PO PRN (02:28)
[2023-03-16] MEDS: PIPERACILLIN/TAZOB 3.375 GM 3.375 GM in DEXTROSE 5%-WATER - 50 ML IVPB SCH ×2 (03:55→10:08)
[2023-03-16] MEDS: IBUPROFEN 600 MG TABLET (FP) PO PRN ×2 (03:57→11:16)
[2023-03-16] MEDS: LABETALOL HCL 200 MG TABLET (FP) PO SCH (10:05)
[2023-03-16] MEDS: LIDOCAINE 4% PATCH TP SCH (10:05)
[2023-03-16 11:31] VITALS: BP 121/74; PULSE 64; RESP 16; TEMP 98.2
[2023-03-16] MEDS: POLYETHYLENE GLYCOL (HEALTHYLAX) 3350 17 GM PACKET PO SCH (12:30)
[2023-03-16] MEDS: SENNOSIDES 8.6MG TABLET (FP) PO SCH (12:30)
[2023-03-16 12:49] LABS: BASO % 0.4 % (0-2.0); EOS % 2.3 % (0-4.5); HEMATOCRIT 29.2 % (32.4-45.2); HEMOGLOBIN 9.6 GM/dL (10.7-15.3); LYMPH % 9.6 % (8-40); MEAN CELL VOLUME 90.8 fl (80-96); MEAN PLT VOLUME 7.7 fl (7.5-11.1); MONO % 6.9 % (3.8-10.2); NEUT % 80.8 % (42.8-82.8); PLATELET COUNT 492 10^3/uL (134-434); RBC 3.21 M/mm3 (3.60-5.2)
[2023-03-16] MEDS ORDERED: AMOX TR/POT CLAV 875MG/125MG TABLETS (FP) PO SCH (17:30)
== END 2023-03-16 15:25 | disposition home or self-care (01) | DRG 540 ==
LOC: JDEL 04:40 → JLDR 08:30 → JICU 18:16 → J3W 03-11 12:35
PROVIDERS: ADMIT Specialist; ATTEND Internal Medicine
PROC: 10D00Z1 Extraction of Products of Conception, Low, Open Approach (ICD-10-PCS; principal; 2023-03-06)
PROC: 05HF33Z Insertion of Infusion Device into Left Cephalic Vein, Percutaneous Approach (ICD-10-PCS; 2023-03-06)
PROC: 0WJG0ZZ Inspection of Peritoneal Cavity, Open Approach (ICD-10-PCS; 2023-03-06)
PROC: 0WJN0ZZ Inspection of Female Perineum, Open Approach (ICD-10-PCS; 2023-03-06)
PROC: 04L33DZ Occlusion of Hepatic Artery with Intraluminal Device, Percutaneous Approach (ICD-10-PCS; 2023-03-06)
PROC: B41FZZZ Fluoroscopy of Right Lower Extremity Arteries (ICD-10-PCS; 2023-03-06)
PROC: 30233N1 Transfusion of Nonautologous Red Blood Cells into Peripheral Vein, Percutaneous Approach (ICD-10-PCS; 2023-03-06)
DX: O60.14X0 Preterm labor third trimester with preterm delivery third trimester, not applicable or unspecified (principal); O76 Abnormality in fetal heart rate and rhythm complicating labor and delivery; O75.89 Other specified complications of labor and delivery; K66.1 Hemoperitoneum; O99.613 Diseases of the digestive system complicating pregnancy, third trimester; K50.90 Crohn's disease, unspecified, without complications; D72.829 Elevated white blood cell count, unspecified; D62 Acute posthemorrhagic anemia; K76.89 Other specified diseases of liver; R94.5 Abnormal results of liver function studies; J95.89 Other postprocedural complications and disorders of respiratory system, not elsewhere classified; J98.11 Atelectasis; R50.9 Fever, unspecified; E86.0 Dehydration; K59.00 Constipation, unspecified; I72.8 Aneurysm of other specified arteries; O14.95 Unspecified pre-eclampsia, complicating the puerperium; Z3A.32 32 weeks gestation of pregnancy; Z37.0 Single live birth
CPT/HCPCS: 36415; 36430; 36600; 37244; 71046-TC-FY; 74174-TC; 76705-TC; 76775-TC; 80048; 80053; 80076; 80307; 81003; 82150; 82803; 83690; 83735; 84075; 84100; 84550; 85025; 85027; 85610; 85730; 86780; 86850; 86900; 86901; 86922; 87040; 87086; 87635; 88307-TC; 96372; 97116-GP; 97162-GP; C1769; C1887; P9058; Q9967